=== PATIENT | male | born 1965 | race Caucasian/White ===

== ENCOUNTER 2020-04-06 14:25 | Inpatient (IN) | payer MEDICAID ==
[~2020-04-06] VITALS: Ht 175.3 cm; Wt 79.7 kg
[2020-04-06 20:00] VITALS: BP 134/91
[2020-04-06] MEDS ORDERED: ZOLPIDEM TARTRATE 10 MG TABLET PO PRN (20:30)
[2020-04-06] MEDS ORDERED: ChlordiazePOXIDE HCL 25 MG CAPSULE PO PRN (20:30)
[2020-04-06] MEDS ORDERED: HALOPERIDOL 5 MG TABLET PO PRN (20:30)
[2020-04-06 21:15] VITALS: BP 135/90
[2020-04-06] MEDS ORDERED: PNEUMOCOCCAL VACCINE POLYVALENT 0.5 ML VIAL [PPSV23] IM ONE (21:30)
[2020-04-06] MEDS: ZOLPIDEM TARTRATE 5 MG TABLET PO PRN (22:04)
[2020-04-06 22:39] VITALS: BP 111/69
[2020-04-07] VITALS (7 sets, daily range): BP systolic 109–119; BP diastolic 62–75
[2020-04-07] MEDS: LEVOTHYROXINE SODIUM 125 MCG TABLET PO SCH (06:19)
[2020-04-07] MEDS ORDERED: ChlordiazePOXIDE HCL 25 MG CAPSULE PO PRN (07:00)
[2020-04-07 07:59] LABS: BASOPHILS % (AUTO) 0.9 % (0.0-2.0); EOSINOPHILS % (AUTO) 7.6 % (1.0-6.0); HEMATOCRIT 38.2 % (41-53); HEMOGLOBIN 12.8 g/dL (13.5-17.5); LYMPHOCYTES # (AUTO) 1.7 K/uL (1.0-4.8); LYMPHOCYTES % (AUTO) 23.7 % (22.0-44.0); MEAN CORPUSCULAR HEMOGLOBIN 32.1 pg (26.0-34.0); MEAN CORPUSCULAR HGB CONC 33.6 G/dL (31.0-37.0); MEAN CORPUSCULAR VOLUME 95 fL (80-100); MONOCYTES # (AUTO) 0.6 K/uL (0.1-1.0); MONOCYTES % (AUTO) 8.6 % (2.0-9.0); NEUTROPHILS # (AUTO) 4.3 K/uL (1.8-7.7); NEUTROPHILS % (AUTO) 59.2 % (40.0-70.0); PLATELET COUNT (AUTO) 213 K/uL (150-450); RED CELL DISTRIBUTION WIDTH 14.5 % (11.5-14.5)
[2020-04-07 08:11] LABS: ALANINE AMINOTRANSFERASE 46 U/L (12-78); ALBUMIN 3.4 g/dL (3.4-5.0); ALKALINE PHOSPHATASE 89 U/L (46-116); ANION GAP 8 mmol/L (8-16); ASPARTATE AMINOTRANSFERASE 29 U/L (15-37); BILIRUBIN,TOTAL 0.4 mg/dL (0.1-1.0); CALCIUM, TOTAL 8.7 mg/dL (8.8-10.5); CARBON DIOXIDE 26 mmol/L (22-29); CHLORIDE 103 mmol/L (98-107); CREATININE 1.06 mg/dL (0.60-1.30); FREE T4 (FREE THYROXINE) 0.88 ng/dL (0.76-1.46); GLOMERULAR FILTR. RATE CALC > 60 mL/min (>60); GLUCOSE,RANDOM 102 mg/dL (70-110); POTASSIUM 4.3 mmol/L (3.5-5.1); SODIUM SERUM 137 mmol/L (136-145); THYROID STIMULATING HORMONE 5.69 uIU/mL (0.36-3.74); TOTAL PROTEIN, SERUM 7.4 g/dL (6.4-8.2); UREA NITROGEN, BLOOD 16 mg/dL (7-18)
[2020-04-07] MEDS: MULTIVITAMINS WITH IRON TABLET PO SCH (08:44)
[2020-04-07] MEDS: ASPIRIN 81 MG CHEWABLE TABLET PO SCH (08:44)
[2020-04-07] MEDS: SUCRALFATE 1 GM TABLET PO SCH (08:44)
[2020-04-07] MEDS: AmLODIPine BESYLATE 10 MG TABLET PO SCH (08:44)
[2020-04-07] MEDS: THIAMINE 100 MG TABLET PO SCH (08:44)
[2020-04-07] MEDS: ChlordiazePOXIDE HCL 25 MG CAPSULE PO SCH ×4 (08:44→20:07)
[2020-04-07 11:48] LABS: APPEARANCE,URINE CLEAR (CLEAR); BILIRUBIN,URINE NEGATIVE (NEGATIVE); GLUCOSE, URINE (UA) NEGATIVE (NEGATIVE); KETONES,URINE NEGATIVE (NEGATIVE); LEUKOCYTE ESTERASE ,URINE NEGATIVE (NEGATIVE); NITRATE,URINE NEGATIVE (NEGATIVE); OCCULT BLOOD,URINE NEGATIVE (NEGATIVE); PROTEIN,URINE NEGATIVE (NEGATIVE); UROBILINOGEN,URINE 0.2 mg/dL (<=1.0)
[2020-04-07 12:06] LABS: AMPHET/METH SCREEN,URINE NEGATIVE (NEGATIVE); BARBITURATE SCREEN, URINE NEGATIVE (NEGATIVE); BENZODIAZEPINES SCREEN,URINE POSITIVE (NEGATIVE); CANNABINOID SCREEN,URINE NEGATIVE (NEGATIVE); COCAINE SCREEN,URINE NEGATIVE (NEGATIVE); METHADONE SCREEN, URINE NEGATIVE (NEGATIVE); OPIATE SCREEN,URINE NEGATIVE (NEGATIVE)
[2020-04-07 12:13] LABS: PHENCYCLIDINE SCREEN,URINE NEGATIVE (NEGATIVE)
[2020-04-07] MEDS ORDERED: CloNIDine HCL 0.1 MG TABLET PO PRN (13:30)
[2020-04-07] MEDS ORDERED: MAG HYDROX/AL HYDROX/SIMETH ES 30 ML SUSPENSION UDCUP PO PRN (13:30)
[2020-04-07] MEDS ORDERED: ONDANSETRON HCL 4 MG TABLET PO PRN (13:30)
[2020-04-07] MEDS ORDERED: NICOTINE 14 MG/24 HOUR PATCH TD PRN (13:30)
[2020-04-07] MEDS ORDERED: GuaiFENesin/D-METHORPHAN [SUGAR-FREE] 200-20MG/10 ML SYRUP UDCUP PO PRN (13:30)
[2020-04-07] MEDS ORDERED: MAGNESIUM HYDROXIDE SUSPENSION 30 ML UDCUP PO PRN (13:30)
[2020-04-07] MEDS ORDERED: ALBUTEROL SULFATE HFA 90 MCG/PUFF 8 GM INHALER IH PRN (13:30)
[2020-04-07] MEDS ORDERED: LOPERAMIDE HCL 2 MG CAPSULE PO PRN (13:30)
[2020-04-07] MEDS ORDERED: IBUPROFEN 400 MG TABLET PO PRN (13:30)
[2020-04-07] MEDS ORDERED: PETROLATUM,WHITE 28 GM JELLY TP PRN (13:30)
[2020-04-07] MEDS ORDERED: ACETAMINOPHEN 325 MG TABLET PO PRN (13:30)
[2020-04-07] MEDS ORDERED: DOCUSATE SODIUM 100 MG CAPSULE PO PRN (13:30)
[2020-04-07] MEDS: FLUoxetine HCL 20 MG CAPSULE PO SCH (17:04)
[2020-04-07] MEDS: ZOLPIDEM TARTRATE 5 MG TABLET PO PRN (21:08)
[2020-04-08 00:01] VITALS: BP 113/72
[2020-04-08] MEDS: LEVOTHYROXINE SODIUM 125 MCG TABLET PO SCH (06:53)
[2020-04-08 08:58] VITALS: BP 129/78
[2020-04-08] MEDS: THIAMINE 100 MG TABLET PO SCH (09:12)
[2020-04-08] MEDS: FLUoxetine HCL 20 MG CAPSULE PO SCH (09:12)
[2020-04-08] MEDS: AmLODIPine BESYLATE 10 MG TABLET PO SCH (09:12)
[2020-04-08] MEDS: ChlordiazePOXIDE HCL 25 MG CAPSULE PO SCH ×4 (09:12→20:03)
[2020-04-08] MEDS: ASPIRIN 81 MG CHEWABLE TABLET PO SCH (09:12)
[2020-04-08] MEDS: MULTIVITAMINS WITH IRON TABLET PO SCH (09:12)
[2020-04-08] MEDS: SUCRALFATE 1 GM TABLET PO SCH (09:13)
[2020-04-08 09:25] VITALS: BP 134/72
[2020-04-08 16:01] VITALS: BP 112/74
[2020-04-08 19:20] VITALS: BP 112/74
[2020-04-08] MEDS: ZOLPIDEM TARTRATE 5 MG TABLET PO PRN (21:48)
[2020-04-09] MEDS: LEVOTHYROXINE SODIUM 125 MCG TABLET PO SCH (06:39)
[2020-04-09] MEDS ORDERED: ChlordiazePOXIDE HCL 10 MG CAPSULE PO PRN (07:00)
[2020-04-09 08:00] VITALS: BP 131/79
[2020-04-09] MEDS: MULTIVITAMINS WITH IRON TABLET PO SCH (09:04)
[2020-04-09] MEDS: AmLODIPine BESYLATE 10 MG TABLET PO SCH (09:05)
[2020-04-09] MEDS: THIAMINE 100 MG TABLET PO SCH (09:05)
[2020-04-09] MEDS: FLUoxetine HCL 20 MG CAPSULE PO SCH (09:05)
[2020-04-09] MEDS: ChlordiazePOXIDE HCL 10 MG CAPSULE PO SCH ×3 (09:07→16:27)
[2020-04-09] MEDS: SUCRALFATE 1 GM TABLET PO SCH (09:10)
[2020-04-09] MEDS: ASPIRIN 81 MG CHEWABLE TABLET PO SCH (09:12)
[2020-04-09] MEDS ORDERED: FLUO-191 PO (13:40)
[2020-04-09] MEDS ORDERED: ASPI-728 PO (14:15)
[2020-04-09] MEDS ORDERED: AMLO10TA7 PO (14:16)
[2020-04-09] MEDS ORDERED: LEVO125 PO (14:17)
[2020-04-09] MEDS ORDERED: MULT-700 PO (14:18)
[2020-04-09] MEDS ORDERED: SUCR1TAB28 PO (14:24)
[2020-04-09] MEDS ORDERED: THIA100T80 PO (14:25)
[2020-04-10] MEDS ORDERED: ChlordiazePOXIDE HCL 10 MG CAPSULE PO PRN (07:00)
== END 2020-04-09 16:30 | disposition home or self-care (01) | DRG 885 ==
LOC: 3EX 19:30 → 3EI 04-07 18:17
DX: F33.2 Major depressive disorder, recurrent severe without psychotic features (principal); F10.20 Alcohol dependence, uncomplicated; F41.9 Anxiety disorder, unspecified; I10 Essential (primary) hypertension; I25.10 Atherosclerotic heart disease of native coronary artery without angina pectoris; R56.9 Unspecified convulsions; F19.10 Other psychoactive substance abuse, uncomplicated; E03.9 Hypothyroidism, unspecified; D64.9 Anemia, unspecified; E78.5 Hyperlipidemia, unspecified; Z88.5 Allergy status to narcotic agent
CPT/HCPCS: 80307; 83036; 84439; 84443; 87081; G0378; G0480